=== PATIENT | female | born 1970 | race American Indian/Alaskan Native ===

== ENCOUNTER 2021-04-16 08:49 | Inpatient (IN) | payer BC ==
[2021-04-10 13:09] LABS: Basophils # (Auto) 0.1 K/mm3 (0.0-0.1); Basophils % (Auto) 0.9 % (0.0-1.8); Eosinophils # (Auto) 0.2 K/mm3 (0.0-0.4); Eosinophils % (Auto) 2.6 % (0.0-4.3); Hematocrit 45.9 % (30.3-42.9); Hemoglobin 14.6 gm/dl (10.1-14.3); Lymphocytes # (Auto) 2.2 K/mm3 (1.2-5.4); Mean Corpuscular HGB Conc 32 % (30-34); Mean Corpuscular Volume 85 fl (79-97); Monocytes # (Auto) 0.6 K/mm3 (0.0-0.8); Monocytes % (Auto) 8.9 % (0.0-7.3); Platelet Count 422 K/mm3 (140-440); Red Blood Count 5.41 M/mm3 (3.65-5.03); Red Cell Distribution Width 12.9 % (13.2-15.2)
[2021-04-10 13:22] LABS: Blood Urea Nitrogen 11 mg/dL (7-17); Hemolysis Index 3
[2021-04-10 13:23] LABS: BUN/Creatinine Ratio 22
--- NOTE | 2021-04-10 13:43 | Anesthesia Consultation ---
Anesthesia Consult and Med Hx Date of service: 04/16/21 - Airway Anesthetic Teeth Evaluation: Chipped, Caps ROM Head & Neck: Adequate Mental/Hyoid Distance: Adequate Mallampati Class: Class III Intubation Access Assessment: Probably Good - Pre-Operative Health Status ASA Pre-Surgery Classification: ASA2 Proposed Anesthetic Plan: General Nerve Block: TAP - Pulmonary Hx Respiratory Symptoms: No (+2FS) - Central Nervous System Hx Psychiatric Problems: No - Endocrine Hx Non-Insulin Dependent Diabetes: Yes - Other Systems Hx Alcohol Use: Yes (Occas) Hx Cancer: No Hx Obesity: Yes
--- NOTE | 2021-04-15 09:57 | History and Physical Report ---
History of Present Illness Date of examination: 04/11/21 Date of admission: 04/16/21 Chief complaint: heavy bleeding History of present illness: Visit Type: Pre-Op CC: pre op. History of Present Illness: pt presents for pre op visit: OLEYSA, Bilat Salpingectomy..... ...............................................................Abi Troy April 11, 2021 11:23 AM Mask, Patient denies fever, cough, shortness of breath and exposure to COVID-19. Patient with large fibroids and heavy periods presents for pre op for OLESYA with BS. All risk/benefits/alternatives were d/w pt and questions were addressed and answered. She also had paragard in place and this will be removed as well. Patient advised of risk of bleeding, infection, need for transfusion either before, during or after the procedure, injury to other organs including but not limited to the bladder, bowel, ovaries, ureters. Pt expressed understanding and all questions were addressed and answered. I also d/w possible need for vertical incision due to size of the fibroids. Again, she expressed understanding and questions were addressed and answered. Consents were signed and given to pt to present at the time of the surgery. Vital Signs: Patient Profile: 50 Years Old Female LMP: 03/30/2021 Height: 69 inches Weight: 248 pounds BMI: 36.62 BP sittin / 68 (left arm) Menstrual History: LMP (date): 03/30/2021 [OB-New Pt-Past Preg Hx-CCC] MARKETING OPERATIONS CONSULTANT History Uterine Surgery (not C/S): negative Operations: negative Hospitalizations: negative Anesthesia Complications: negative Abnormal PAP: positive Uterine Anomaly: negative XANDER Exposure: negative Infertility: negative Infection History HIV Risk Eval: no Personal hx. of genital herpes: no Partner hx. of genital herpes: no Hx of STD: None Active Medications (reviewed today): MULTI VITAMINS () METFORMIN () Current Allergies (reviewed today): * SHELLFISH (Critical) Past Medical History: Reviewed history from 02/21/2021 and no changes required: Negative Past Medical History Past Surgical History: Reviewed history from 02/21/2021 and no changes required: negative Family History Summary: Reviewed history and no changes required: 04/15/2021 General Comments - FH: DM Risk Factors: Smoked Tobacco Use: Never smoker Smokeless Tobacco Use: Never Passive Smoke Exposure: no HIV High Risk Behavior: no Exercise: yes Review of Systems General Denies fever, chills, sweats, anorexia, fatigue, weakness, malaise, weight loss and sleep disorder. Denies nausea, vomiting, headache, swelling of legs, abdominal pain, vaginal discharge, vaginal bleeding and contractions. Complains of menorrhagia and painful periods. Denies vaginal discharge, incontinence, dysuria, hematuria, urinary frequency, amenorrhea, abnormal vaginal bleeding, pelvic pain, genital sores, decreased libido, painful sex, urinary urgency, hot flashes, vaginal dryness, vaginal itching and vaginal odor. CV Denies chest pains, palpitations, syncope, dyspnea on exertion, orthopnea, PND and peripheral edema. Resp Denies cough, dyspnea at rest, excessive sputum, hemoptysis, wheezing and pleurisy. GI Denies nausea, vomiting, diarrhea, constipation, change in bowel habits, abdominal pain, melena, hematochezia, jaundice, gas/bloating, indigestion/heartburn, dysphagia and odynophagia. Endo Denies cold intolerance, heat intolerance, polydipsia, polyphagia, polyuria and unusual weight change. Breast Denies left breast lump, right breast lump, nipple discharge, bloody discharge from nipple, breast pain, abnormal mammogram and breast enlargement. MS Denies back pain, joint pain, joint swelling, muscle cramps, muscle weakness, stiffness, arthritis, sciatica, restless legs, leg pain at night and leg pain with exertion. Derm Denies rash, itching, dryness and suspicious lesions. Neuro Denies paralysis, paresthesias, headache, seizures, tremors, vertigo, transient blindness, frequent falls, frequent headaches and difficulty walking. Psych Denies depression, anxiety, irritability and mood swings. Eyes Denies blurring, diplopia, irritation, discharge, vision loss, eye pain and photophobia. ENT Denies earache, ear discharge, tinnitus, decreased hearing, nasal congestion, nosebleeds, sore throat and hoarseness. Allergy Denies urticaria, allergic rash, hay fever and recurrent infections. Heme Denies abnormal bruising, bleeding and enlarged lymph nodes. 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: abnormal PAP smear Family/Genetic History: other (see hpi) Social history: no significant social history, Medications and Allergies Allergies Allergy/AdvReac Type Severity Reaction Status Date / Time shellfish derived Allergy Anaphylaxis Verified 04/10/21 15:33 Home Medications Medication Instructions Recorded Confirmed Last Taken Type Dapagliflozin Propanediol [Farxiga] 1 tab PO DAILY 04/05/21 04/05/21 Unknown History Ibuprofen [Motrin] 800 mg PO Q8HR PRN 04/05/21 04/05/21 Unknown History Metformin HCl [metFORMIN] 1,000 mg PO BID 04/05/21 04/05/21 Unknown History Active Meds: Active Medications Acetaminophen (Acetaminophen 500 Mg Tab) 1,000 mg PO ONCE NR Stop: 04/16/21 23:59 Celecoxib (Celecoxib 200 Mg Cap) 400 mg PO PREOP NR Stop: 04/16/21 23:59 Fentanyl (Fentanyl 100 Mcg/2 Ml Inj) 100 mcg IV ONCE NR Stop: 04/16/21 23:59 Lactated Ringer's (Lactated Ringers) 1,000 mls @ 125 mls/hr IV DIRECT SILVANA Magnesium Oxide (Magnesium Oxide 400 Mg Tab) 400 mg PO ONCE NR Stop: 04/16/21 23:59 Midazolam HCl (Midazolam 2 Mg/2 Ml Inj) 2 mg IV PREOP NR Stop: 04/16/21 23:59 - Physical Exam Cardiovascular: Normal S1, Normal S2 Lungs: Positive: Clear to auscultation, Normal air movement Abdomen: Positive: normal appearance, soft, mass (palpated at the umbilicus). Negative: distention, tenderness Genitourinary (Female): Positive: other (deferred until EUA) Results Result Diagrams: 04/10/21 06:00 04/10/21 06:00 All other labs normal. Assessment and Plan - Patient Problems (1) Fibroid uterus Status: Acute Qualifiers: Uterine leiomyoma location: intramural Qualified Code(s): D25.1 - Intramural leiomyoma of uterus Plan to address problem: Admit prepare for OLESYA with BS consents signed and placed on the chart. (2) Menorrhagia with regular cycle Status: Acute (3) Painful menstrual periods Status: Acute
[~2021-04-16 08:49] MED LIST: ACETAMINOPHEN 500 MG TAB PO NR; CELECOXIB 200 MG CAP PO NR; MAGNESIUM OXIDE 400 MG TAB PO NR; MIDAZOLAM 2 MG/2 ML INJ IV NR; SCOPOLAMINE TRANSDERMAL PATCH 72 HR TD NR; ceFAZolin/Water 2 GM/20 ML 2 GM/20 ML SYRINGE IV NR; fentaNYL 100 MCG/2 ML INJ IV NR
[2021-04-16] MEDS ORDERED: BUPIVACAINE-EPINEPHRINE/PF 0.25%-1:200,000 (30 ML) VIAL INFILTRATI ONE ×2 (09:00→09:01)
[2021-04-16] MEDS ORDERED: ONDANSETRON 4 MG/2 ML INJ IV PRN (09:30)
--- NOTE | 2021-04-16 09:30 | Anesthesia Day of Surgery ---
Anesthesia Day of Surgery - Day of Surgery Patient Examined: Yes Patient H&P Reviewed: Yes Patient is NPO: Yes
[2021-04-16] MEDS: LACTATED RINGERS 1,000 ML IV SCH ×2 (10:00→16:55)
[2021-04-16] MEDS ORDERED: SODIUM CHLORIDE 0.9% 0 ML ONE (10:13)
[2021-04-16] MEDS ORDERED: VASOPRESSIN 20 UNIT/1 ML INJ ONE (10:14)
[2021-04-16] MEDS ORDERED: HYDROmorphone 1 MG/1 ML INJ ONE (10:15)
[2021-04-16] MEDS ORDERED: ROCURONIUM 50 MG/5 ML INJ IV ONE ×2 (10:16→12:05)
[2021-04-16] MEDS ORDERED: LIDOCAINE MPF (2%) 20 MG/1 ML VIAL 5 ML ONE (10:16)
[2021-04-16] MEDS ORDERED: propofoL 200 MG/20 ML VIAL IV ONE (10:16)
[2021-04-16] MEDS ORDERED: CITRIC ACID-SOD CITRATE 500 ML IV ONE (10:26)
[2021-04-16] MEDS ORDERED: ceFAZolin/STERILE WATER 2 GM/20 ML SYRINGE IV NR (11:00)
[2021-04-16] MEDS ORDERED: LACTATED RINGERS 1,000 ML ONE (12:43)
[2021-04-16] MEDS ORDERED: SODIUM CHLORIDE 0.9% IRR 1,500 ML BOTTLE IR ONE (13:03)
[2021-04-16] MEDS ORDERED: CITRIC ACID-SOD CITRATE SOLN 500 ML IV SOLN IV ONE (13:03)
[2021-04-16] MEDS ORDERED: ONDANSETRON 4 MG/2 ML INJ ONE (13:14)
[2021-04-16] MEDS ORDERED: GLYCOPYRROLATE 0.4 MG/2 ML INJ ONE (13:37)
[2021-04-16] MEDS ORDERED: NEOSTIGMINE 10MG/10 ML INJ MDV ONE (13:37)
--- NOTE | 2021-04-16 13:53 | Operative Report ---
Operative Report Operative Report: Date of procedure: 04/16/2021 Pre-operative diagnosis: Uterine fibroids Dysmenorrhea Menorrhagia Diabetes Post-operative diagnosis: Same Procedure name(s): 1. Exploratory laparotomy 2. Total abdominal hysterectomy 3. Removal of intrauterine device 4. Left salpingectomy Surgeon: Lea Appiah M.D. Food Porter: Dr. Shalonda Samuels Anesthesia: Gen. endotracheal anesthesia EBL: 300 mL Urine output: 450 mL of clear urine out at the end of the procedure Fluids: 1400 mL Cell Saver: 125 mL given back during the procedure Findings: Large uterus extending above the umbilicus Fallopian tube on the left right fallopian tube not seen only the fimbriated edge same Normal ovaries bilaterally Indications: Patient presents with long history of abdominal bloating due to large uterine fibroids. Patient also noted to have heavy menstrual periods and pelvic pain. Patient desired definitive therapy with removal of uterus. All risk benefits and alternatives were discussed with the patient. Consents were signed and placed on the chart. Procedure: Patient was taken to the operating room wishes placed under general endotracheal anesthesia. She was then prepped and draped in normal sterile fashion. Sterile speculum was placed inside the vagina. Sterile ring forceps were then used to remove the intrauterine device. Upon removal the device was noted to have one of the arms missing. Incision was made below the umbilicus in the midline. Incision was made with the scalpel and carried down to the underlying layer of fascia with the scalpel and the Bovie. The fascia was incised in the midline and this incision was extended superiorly and inferiorly. The peritoneum was entered into sharply and this incision was extended superiorly and inferiorly. The bowel was packed away with moist wet laps. The uterus was exteriorized. Exploratory laparotomy was performed with the above- stated findings. The attention was turned to the round ligaments bilaterally. The round ligaments were grasped with the with the enseal device cauterized and ligated with excellent hemostasis noted. The anterior leaf of the broad ligament was opened and the bladder flap was created. The bladder was dissected off of the lower uterine segment and the cervix. Attention was turned to the tubo-ovarian ligament which was in similar fashion cauterized with the Enseal device and transected with excellent hemostasis noted. Attention was turned to the uterine arteries bilaterally which a similar fashion were grasped with Sharron clamps transected and suture ligated with excellent hemostasis noted. The uterus was then amputated from the cervical stump. The cardinal uterosacral ligaments and likewise fashion for grasped with Sharron clamps transected and suture ligated with excellent hemostasis noted. The Zeppelin clamps were then placed below the level of the cervix with care of and taken that the bladder had been dissected off of the lower uterine segment of the uterus. The uterus and cervix were then amputated from the vagina. The vaginal cuff angles were secured with Tarun stitches using 0 Vicryl bilaterally. The remainder of the vaginal cuff was closed using a series of [id number] sutures using 0 Vicryl. The pelvis was then irrigated. Excellent hemostasis was noted. Fahad was placed along the incision line of the vaginal cuff. All instruments and laps were removed from the abdomen. Interceed was placed along the right adnexa. Excellent hemostasis was noted bilaterally. Ureters were noted bilaterally. All lap counts were correct at this point. The fascia was then closed using looped PDS suture in a running fashion. The subcuticular fat was reapproximated with 2-0 Vicryl in both interrupted sutures and running fashion. The skin was then closed in a subcuticular stitch using 4-0 Vicryl. The patient tolerated the procedure well. Sponge lap and needle counts were all correct 3. Patient received gentamicin and Clinda prior to the onset of the procedure. Patient was taken to the recovery room awake and in stable condition.
[2021-04-16] MEDS ORDERED: ACETAMINOPHEN 325 MG TAB PO PRN (14:00)
[2021-04-16] MEDS ORDERED: KETOROLAC 30 MG/1 ML INJ IV PRN (14:00)
[2021-04-16] MEDS ORDERED: KETOROLAC 30 MG/1 ML INJ ONE (14:09)
[2021-04-16] MEDS: HYDROmorphone 1 MG/1 ML INJ IV PRN ×3 (14:16→14:48)
[2021-04-16] MEDS ORDERED: INSULIN REGULAR, HUMAN 100 UNITS/1 ML IV SCH (14:30)
--- NOTE | 2021-04-16 15:54 | Post Anesthesia Evaluation ---
- Post Anesthesia Evaluation Patient Participated: Yes Airway Patent: Yes Stable Respiratory Function: Yes Nausea/Vomiting: No Temp > 96.8F: Yes Pain Manageable: Yes Adequeate Hydration: Yes Anesthesia Complications: No
[2021-04-16] MEDS ORDERED: INSULIN REGULAR, HUMAN 100 UNITS/1 ML IV ONE (16:00)
[2021-04-16] MEDS ORDERED: DEXTROSE 50% IN WATER (25GM) 50 ML SYRINGE IV PRN (17:30)
--- NOTE | 2021-04-16 18:04 | Event Note ---
Date: 04/16/21 Pt advised of findings of the procedure. All questions were addressed and answered. Stressed importance of good glucose control and hence the slinding scale she has been placed on. All questions were addressed and answered.
[2021-04-16] MEDS: MORPHINE 4 MG/1 ML INJ IV PRN (18:14)
[2021-04-16] MEDS: INSULIN REGULAR, HUMAN 100 UNITS/1 ML SUB-Q SCH ×2 (18:22→23:00)
[2021-04-16] MEDS: ceFAZolin/NS 1 GM/50 ML 1 GM/50 ML BAG IV SCH (19:31)
[2021-04-16] MEDS: HYDROcodone/ACETAMINOPHEN 5-325 MG TAB PO PRN (20:37)
[2021-04-17] MEDS: LACTATED RINGERS 1,000 ML IV SCH ×2 (00:13→10:20)
[2021-04-17] MEDS: HYDROcodone/ACETAMINOPHEN 5-325 MG TAB PO PRN ×4 (00:13→20:28)
[2021-04-17] MEDS: MORPHINE 4 MG/1 ML INJ IV PRN (01:52)
[2021-04-17] MEDS: ceFAZolin/NS 1 GM/50 ML 1 GM/50 ML BAG IV SCH (04:54)
[2021-04-17] MEDS: INSULIN REGULAR, HUMAN 100 UNITS/1 ML SUB-Q SCH ×3 (05:26→17:53)
[2021-04-17 06:08] LABS: Hematocrit 39.1 % (30.3-42.9); Hemoglobin 12.9 gm/dl (10.1-14.3)
[2021-04-17] MEDS: metFORMIN 500 MG TAB PO SCH ×2 (08:02→16:42)
[2021-04-17] MEDS ORDERED: IBUPROFEN 800 MG TAB PO PRN (14:00)
--- NOTE | 2021-04-17 14:27 | Progress Note ---
Assessment and Plan - Patient Problems (1) Fibroid uterus Current Visit: No Status: Acute Qualifiers: Uterine leiomyoma location: intramural Qualified Code(s): D25.1 - Intramural leiomyoma of uterus (2) Menorrhagia with regular cycle Current Visit: No Status: Acute (3) Painful menstrual periods Current Visit: No Status: Acute (4) S/P OLESYA (total abdominal hysterectomy) Current Visit: Yes Status: Acute Plan to address problem: -ADAT -ambulate TID -plan for d/c in the am if remain AFVSS -plan of care d/c pt and all questions were addressed and answered -doing well -IS use 10 x per hour (5) Diabetes Current Visit: Yes Status: Acute Qualifiers: Diabetes mellitus type: type 2 Diabetes mellitus complication status: without complication Plan to address problem: -will f/u with pcp upon d/c home -cont metformin and SSI Subjective - Subjective Date of service: 04/17/21 (late entry; pt seen at 1300pm) Principal diagnosis: POD #1 s/p OLESYA with LS 2)DM Interval history: Pt doing well and tolerating full liquid diet. She does report burping but no flattus at this time. She was able to spontaneously void. She request to eat solid food. She has been ambulating in the room. Patient reports: appetite normal, voiding normally, pain well controlled, ambulating normally, no dizzy ambulation, no flatus, no bowel movement, no nauseated Objective - Vital Signs Latest vital signs: Vital Signs Temp Pulse Resp Resp BP BP Pulse Ox 04/17/21 12:00 98.2 F 70 18 103/89 04/17/21 09:30 98.2 F 65 18 103/68 04/17/21 04:58 98.6 F 74 16 102/78 04/17/21 02:22 18 04/17/21 01:52 18 04/17/21 01:13 18 04/17/21 00:33 98.0 F 64 18 144/76 96 04/17/21 00:13 18 97 04/16/21 22:15 18 18 04/16/21 20:37 18 18 04/16/21 15:15 81 18 117/61 96 04/16/21 15:00 97.5 F L 66 18 116/54 96 04/16/21 14:45 68 20 115/59 100 07/20/21 14:30 69 20 122/60 100 Intake and Output 04/16/21 04/17/21 04/17/21 22:59 06:59 14:59 Intake Total 1414.583 912.5 1320 Output Total 1600 500 370 Balance -185.417 412.5 950 Intake: IV 914.583 912.5 1000 ANCEF/NS 1 GM/50 ML 1 gm 50 In 50 ml @ 100 mls/hr IV Q8H SILVANA Rx#:[id number] Lactated Ringers 1,000 ml 864.583 912.5 1000 @ 125 mls/hr IV DIRECT SILVANA Rx#:[id number] Oral 500 320 Output: Urine 1600 500 370 Indwelling Catheter 800 500 Uretheral (Bales) 600 Void 370 Other: Total, Intake Amount 200 320 Total, Output Amount 350 500 370 Voiding Method Indwelling Catheter Indwelling Catheter - Exam Cardiovascular: Present: Normal S1, Normal S2 Lungs: Present: Clear to auscultation, Normal air movement Abdomen: Present: normal appearance, soft, normal bowel sounds. Absent: distention, tenderness, guarding Extremities: Present: normal. Absent: tenderness, edema Deep Tendon Reflex Grade: Normal +2 Incision: Present: normal, dry, intact, dressed - Labs Labs: Abnormal lab results 04/16/21 04/16/21 04/16/21 Range/Units 15:01 15:31 18:07 POC Glucose 261 H 200 H 223 H (70-105) mg/dL 04/16/21 04/17/21 04/17/21 Range/Units 21:59 05:22 11:42 POC Glucose 269 H 166 H 168 H (70-105) mg/dL
[2021-04-18] MEDS: HYDROcodone/ACETAMINOPHEN 5-325 MG TAB PO PRN (03:17)
[2021-04-18] MEDS: INSULIN REGULAR, HUMAN 100 UNITS/1 ML SUB-Q SCH (06:04)
--- NOTE | 2021-04-18 07:59 | Progress Note ---
Assessment and Plan - Patient Problems (1) Fibroid uterus Status: Acute Qualifiers: Uterine leiomyoma location: intramural Qualified Code(s): D25.1 - Intramural leiomyoma of uterus (2) Menorrhagia with regular cycle Status: Acute (3) Painful menstrual periods Status: Acute (4) S/P OLESYA (total abdominal hysterectomy) Status: Acute Plan to address problem: -d/c home this am -f/u in office in one week. (5) Diabetes Status: Acute Qualifiers: Diabetes mellitus type: type 2 Diabetes mellitus complication status: without complication Plan to address problem: -will f/u with pcp upon d/c home -cont metformin and SSI Subjective - Subjective Principal diagnosis: POD #2 s/p OLESYA with LS 2)DM Interval history: Pt tolerated regular diet and request to go home today.I d/w pt after care for incision and stressed importance of f/u with pcp next week regarding diabetes. She and asked several questions all of which were addressed and answered. Patient reports: appetite normal, voiding normally, pain well controlled, flatus, ambulating normally, no dizzy ambulation, no nauseated : doing well Objective - Vital Signs Latest vital signs: Vital Signs Temp Pulse Pulse Resp Resp BP BP 04/18/21 06:59 18 04/18/21 05:59 18 04/18/21 04:37 97.6 F 65 20 129/72 04/18/21 04:16 18 04/18/21 03:17 18 04/17/21 22:46 97.8 F 66 18 123/63 04/17/21 21:35 70 18 04/17/21 21:28 18 04/17/21 21:08 18 04/17/21 20:28 18 04/17/21 20:11 97.8 F 70 22 109/57 04/17/21 12:00 98.2 F 70 18 103/89 04/17/21 09:30 98.2 F 65 18 103/68 Pulse Ox 04/18/21 06:59 04/18/21 05:59 04/18/21 04:37 93 04/18/21 04:16 04/18/21 03:17 04/17/21 22:46 93 04/17/21 21:35 04/17/21 21:28 04/17/21 21:08 04/17/21 20:28 04/17/21 20:11 95 04/17/21 12:00 04/17/21 09:30 Intake and Output 04/17/21 04/18/21 04/18/21 22:59 06:59 14:59 Intake Total 560 120 Output Total 800 Balance -240 120 Intake: Oral 560 Intake, Free Water 120 Output: Urine 800 Void 800 Other: Total, Intake Amount 240 Total, Output Amount 300 Voiding Method Toilet # Voids 1 Void 1 - Exam Breasts: Present: deferred Cardiovascular: Present: Regular rate, Normal S1, Normal S2 Lungs: Present: Clear to auscultation, Normal air movement Abdomen: Present: normal appearance, soft, normal bowel sounds. Absent: distention, tenderness, guarding Extremities: Present: normal. Absent: tenderness, edema Deep Tendon Reflex Grade: Normal +2 Incision: Present: normal, dry, intact (dressing removed. No bleeding noted with removal of the dressing.) - Labs Labs: Abnormal lab results 04/17/21 04/17/21 04/18/21 Range/Units 11:42 17:37 00:03 POC Glucose 168 H 157 H 189 H (70-105) mg/dL 04/18/21 Range/Units 06:01 POC Glucose 182 H (70-105) mg/dL
--- NOTE | 2021-04-18 08:00 | Discharge Summary ---
Providers - Providers Date of Admission: 04/16/21 08:49 Date of discharge: 04/18/21 Attending physician: MAGDIEL LANZA Primary care physician: SENIOR DESIGNER/ART DIRECTOR Hospitalization Reason for admission: other (OLESYA) Procedure: other (OLESYA) Procedure details: see op note Incision: normal, dry, intact (midline below the umbilicus. No signs or symptoms of infecton) Discharge diagnosis: other (s/p OLESYA with LS) Hospital course: Pt was admitted for above stated procedure. Post op course was complicated by elevated glucose readings but otherwise was not eventful. Pt will have f/u with pcp regarding diabetes this week. Pt will f/u in my office in one week. She had routine post op care. Condition at discharge: Good Disposition: DC-01 TO HOME OR SELFCARE - Discharge Diagnoses (1) Fibroid uterus Status: Acute Qualifiers: Uterine leiomyoma location: intramural Qualified Code(s): D25.1 - Intramural leiomyoma of uterus (2) Menorrhagia with regular cycle Status: Acute (3) Painful menstrual periods Status: Acute (4) S/P OLESYA (total abdominal hysterectomy) Status: Acute (5) Diabetes Status: Acute Qualifiers: Diabetes mellitus type: type 2 Diabetes mellitus complication status: without complication Plan - Discharge Medications Prescriptions: Docusate Sodium [Colace] 100 mg PO BID PRN #60 capsule PRN Reason: Constipation Ibuprofen [Motrin 800 MG tab] 800 mg PO Q8HR PRN #30 tablet PRN Reason: Pain, Moderate (4-6) oxyCODONE /ACETAMINOPHEN [Percocet 5/325] 1 tab PO Q4HR #30 tab - Provider Discharge Summary Activity: routine, no sex for 6 weeks, no heavy lifting 4 weeks, no strenuous exercise Additional instructions: [] Smoking cessation referral if applicable(refer to patient education folder for contact #) [] Refer to [facility] Booklet Call your doctor immediately for: * Fever > 100.5 * Heavy vaginal bleeding ( >1 pad per hour) * Severe persistent headache * Shortness of breath * Reddened, hot, painful area to leg or breast * Drainage or odor from incision. * Keep incision clean and dry at all times and follow doctor's instructions regarding bathing/showering - Follow up plan Follow up: PRIMARY CARE, [Primary Care Provider] - 7 Days MAGDIEL LANZA MD [Staff Physician] - 7 Days Forms: [facility] Discharge Summary
[2021-04-18 08:51] VITALS: BP 127/80
[2021-04-18] MEDS: metFORMIN 500 MG TAB PO SCH (09:28)
== END 2021-04-18 10:00 | disposition home or self-care (01) | DRG 743 ==
LOC: 3A 08:49 → OB 14:23
PROVIDERS: ADMIT Obstetrics & Gynecology; ATTEND Obstetrics & Gynecology
PROC: 0UT90ZZ Resection of Uterus, Open Approach (ICD-10-PCS; principal; 2021-04-16)
PROC: 0UT60ZZ Resection of Left Fallopian Tube, Open Approach (ICD-10-PCS; 2021-04-16)
DX: D25.1 Intramural leiomyoma of uterus (principal); E66.9 Obesity, unspecified; E11.9 Type 2 diabetes mellitus without complications; Z68.36 Body mass index [BMI] 36.0-36.9, adult; Z91.013 Allergy to seafood; Z20.822 Contact with and (suspected) exposure to COVID-19; N92.0 Excessive and frequent menstruation with regular cycle
CPT/HCPCS: 36415; 64450; 80048; 82962; 84703; 85014; 85018; 85025; 86850; 86900; 86901; 88300; 88302; 88307; 88309; G0378; J0690; J1170; J1815; J1885; J2250; J2270; J2405; J2704; J2710; J3010; J7120; U0003